=== PATIENT | female | born 1935 | race Caucasian/White ===

== ENCOUNTER 2023-07-24 03:00 | Emergency (ER) | payer OTHER ==
[~2023-07-24] VITALS: Ht 167.6 cm; Wt 55.3 kg
[2023-07-24] MEDS ORDERED: ONDANSETRON HCL/PF 4 MG/2 ML VIAL ONE (03:15)
[2023-07-24] MEDS ORDERED: CEFEPIME 1 GM VIAL ONE (03:15)
[2023-07-24] MEDS ORDERED: VANCOMYCIN 1 GM /D5W 250 ML PB IV ONE (03:15)
[2023-07-24] MEDS: VANCOMYCIN 1 GM in IV D5W 250 ML IV ONE (03:16)
[2023-07-24] MEDS: CEFEPIME 1 GM in IV D5W 50 ML IV ONE (03:16)
[2023-07-24] MEDS: ONDANSETRON HCL/PF 4 MG/2 ML VIAL IVP ONE (03:17)
[2023-07-24] MEDS: IV LR 1000 ML 1,000 ML BAG IV ONE (03:26)
[2023-07-24] MEDS ORDERED: ACETAMINOPHEN ES 500 MG TABLET ONE (03:31)
[2023-07-24] MEDS: ACETAMINOPHEN ES 500 MG TABLET PO ONE (03:38)
[2023-07-24 03:44] LABS: BASOPHILS % (AUTO) 0.4 % (0.0-2.0); EOSINOPHILS % (AUTO) 0.2 % (0.0-6.0); HEMATOCRIT 30 % (33-45); LYMPHOCYTES # (AUTO) 0.2 K/uL (0.8-4.8); LYMPHOCYTES % (AUTO) 6.9 % (20.0-44.0); MEAN CORPUSCULAR HEMOGLOBIN 28 PG (26.0-33.0); MEAN CORPUSCULAR HGB CONC 33 g/dl (31.0-36.0); MEAN CORPUSCULAR VOLUME 85 fL (82-100); MONOCYTES # (AUTO) 0.1 K/uL (0.1-1.30); MONOCYTES % (AUTO) 5.4 % (2.0-12.0); NEUTROPHILS # (AUTO) 2.3 K/uL (1.8-8.9); NEUTROPHILS % (AUTO) 87.1 % (43.0-81.0); PLATELET COUNT (AUTO) 150 K/uL (150-450); RED BLOOD CELL COUNT(AUTO) 3.57 MIL/uL (4.0-5.2); RED CELL DISTRIBUTION WIDTH 19.9 % (11.5-15.0); WHITE BLOOD COUNT (AUTO) 2.7 K/uL (4.3-11.0)
[2023-07-24 03:50] LABS: INR 1.03 (0.91-1.10); PARTIAL THROMBOPLASTIN TIME 22.1 SEC (24.3-34.3); PROTHROMBIN TIME 10.9 SECS (9.2-11.1)
[2023-07-24 03:52] LABS: LACTIC ACID 1.1 mmol/L (0.4-2.0)
[2023-07-24 03:58] LABS: ALANINE AMINOTRANSFERASE 22 U/L (12-78); ALBUMIN 3.6 g/dL (3.4-5.0); ALKALINE PHOSPHATASE 68 U/L (46-116); ASPARTATE AMINOTRANSFERASE 21 U/L (15-37); BILIRUBIN,DIRECT 0.3 mg/dL (0.0-0.2); BILIRUBIN,TOTAL 1.3 mg/dL (0.2-1.0); CALCIUM, SERUM 8.4 mg/dL (8.5-10.1); CARBON DIOXIDE 27 mmol/L (21-32); CHLORIDE 97 mmol/L (98-107); CREATININE 0.6 mg/dL (0.6-1.3); GLUCOSE 100 mg/dL (74-106); SODIUM SERUM 134 mmol/L (136-145); UREA NITROGEN, BLOOD 16 mg/dL (7-18)
[2023-07-24 04:03] LABS: POTASSIUM 2.8 mmol/L (3.5-5.1)
[2023-07-24] MEDS ORDERED: MORPHINE SULFATE INJ 4 MG/ML DISP.SYRIN ONE (04:04)
[2023-07-24] MEDS: MORPHINE SULFATE INJ 2 MG/ML DISP.SYRIN IV ONE (04:05)
[2023-07-24 04:14] LABS: APPEARANCE,URINE CLEAR (CLEAR); BILIRUBIN,URINE NEGATIVE (NEGATIVE); BLOOD, URINE NEGATIVE Ery/uL (NEGATIVE); COLOR,URINE YELLOW (YELLOW); KETONES,URINE NEGATIVE (NEGATIVE); LEUKOCYTE ESTERASE ,URINE NEGATIVE (NEGATIVE); NITRITE, URINE NEGATIVE (NEGATIVE); PH,URINE 6.5 (5.0-8.0); PROTEIN,URINE NEGATIVE (NEGATIVE); UGLUCOSE NEGATIVE (NEGATIVE); UROBILINOGEN,URINE 0.2 EU/dL (0.2)
[2023-07-24] MEDS ORDERED: POTASSIUM CHLORIDE 20 MEQ TAB.PRT.SR PO ONE (04:33)
[2023-07-24] MEDS ORDERED: POTASSIUM CL. PREMIX PERIPHER. 100 ML ONE (04:35)
[2023-07-24] MEDS: POTASSIUM CL. PREMIX PERIPHER. 50 ML IV SCH (04:40)
[2023-07-24] MEDS: POTASSIUM CHLORIDE 20 MEQ TAB.PRT.SR PO ONE (04:49)
[2023-07-24] MEDS ORDERED: CT SWABBABLE VALVE TRANS SET 1 EA INFUS.SET MC ONE (05:07)
[2023-07-24] MEDS ORDERED: IOHEXOL-350 100 ML VIAL IV ONE (05:07)
[2023-07-24] MEDS ORDERED: IV NS 0.9% 250 ML IV ONE (05:08)
[2023-07-24] MEDS ORDERED: POTASSIUM CL. PREMIX PERIPHER. 50 ML ONE (07:02)
[2023-07-24 11:30] VITALS: BP 92/42; TEMP 98.5; O2SAT 98
== END 2023-07-24 11:49 | disposition short-term general hospital (02) ==
LOC: ER 03:04
DX: A41.9 Sepsis, unspecified organism (principal); R65.21 Severe sepsis with septic shock; J96.00 Acute respiratory failure, unspecified whether with hypoxia or hypercapnia; E87.6 Hypokalemia; I25.2 Old myocardial infarction; R11.0 Nausea; R50.9 Fever, unspecified; Z88.0 Allergy status to penicillin; Z88.2 Allergy status to sulfonamides; Z20.822 Contact with and (suspected) exposure to COVID-19
CPT/HCPCS: 99291; 96365; 71275; 71045; 96367; 96366 ×2; 96375 ×2; 87426; 96368; 93005; 87804 ×2; 84145; 85025; 80048; 87040 ×2; 87086; 83605; 80076; 81003; 36415; 84484; 85730; J2270; J3370 ×2; J2405; J7060 ×2; J7120 ×3; J7030; J7050; J7040; J3480 ×2; J0692 ×2; Q9967; A4223 ×2